=== PATIENT | male | born 1985 | race American Indian/Alaskan Native ===

== ENCOUNTER 2019-02-05 16:44 | Emergency (ER) | payer OTHER ==
[2019-02-05] MEDS ORDERED: TYLENOL PO ONE (17:02)
[2019-02-05 17:24] LABS: Basophils % (Auto) 0.1 % (0.0-1.8); Eosinophils # (Auto) 0.1 K/mm3 (0.0-0.4); Eosinophils % (Auto) 1.4 % (0.0-4.3); Hematocrit 40.6 % (35.5-45.6); Hemoglobin 13.4 gm/dl (11.8-15.2); Lymphocytes # (Auto) 0.5 K/mm3 (1.2-5.4); Lymphocytes % (Auto) 6.8 % (13.4-35.0); Mean Corpuscular HGB Conc 33 % (32-34); Mean Corpuscular Volume 78 fl (84-94); Monocytes # (Auto) 0.2 K/mm3 (0.0-0.8); Monocytes % (Auto) 3.1 % (0.0-7.3); Platelet Count 162 K/mm3 (140-440); Red Blood Count 5.18 M/mm3 (3.65-5.03); Red Cell Distribution Width 15.5 % (13.2-15.2)
[2019-02-05 17:54] LABS: Bilirubin,Urine NEG (Negative); Blood,Urine NEG (Negative); Color,Urine Yellow (Yellow); Protein,Urine <15 mg/dL mg/dL (Negative); WBC,Urine < 1.0 /HPF (0.0-6.0)
[2019-02-05 18:07] LABS: Alanine Aminotransferase 25 units/L (7-56); Albumin 4.6 g/dL (3.9-5); BUN/Creatinine Ratio 14; Blood Urea Nitrogen 17 mg/dL (9-20); Calcium 9.6 mg/dL (8.4-10.2); Hemolysis Index 3
--- NOTE | 2019-02-05 18:56 | Emergency Department Report ---
ED General Adult HPI - General Chief complaint: Nausea/Vomiting/Diarrhea Stated complaint: NAUSEA/DIZZY/LIGHT HEADED Time Seen by Provider: 02/05/19 18:27 Source: patient, RN notes reviewed Mode of arrival: Ambulatory Limitations: No Limitations - History of Present Illness Initial comments: This is a 33-year-old gentleman, not known to this provider previously. The patient presents to the emergency room today with a complaint of nausea, weakness and dizziness. He has not vomited. He does not have physical pain. He describes a sensation of lightheadedness. He reports earlier once today, he had mild suprapubic abdominal discomfort, which has since resolved. He currently denies headache, neck pain, chest pain, abdominal pain, shortness of breath, irritative or obstructive urinary symptoms, sore throat. He denies recent travel, antibiotic use, and he makes no indication of intravenous drug use. His symptoms have now resolved, and he has no complaints at this time. He denies body aches, muscle aches, myalgias. -: Sudden Severity scale (0 -10): 0 Consistency: now resolved Improves with: none Worsens with: none - Related Data Previous Rx's Medication Instructions Recorded Last Taken Type Acetaminophen [Arthritis Pain 650 mg PO Q6HR PRN #30 tablet.er 02/05/19 Unknown Rx Relief] Ibuprofen [Motrin] 600 mg PO Q8H PRN #30 tablet 02/05/19 Unknown Rx Magnesium Oxide 400 mg PO BID #14 tablet 02/05/19 Unknown Rx Ondansetron [Zofran Odt] 4 mg PO Q8HR PRN #20 tab.rapdis 02/05/19 Unknown Rx Allergies Allergy/AdvReac Type Severity Reaction Status Date / Time No Known Allergies Allergy Unverified 02/05/19 16:49 ED Review of Systems ROS: Stated complaint: NAUSEA/DIZZY/LIGHT HEADED Other details as noted in HPI Constitutional: malaise. denies: fever Eyes: denies: eye discharge ENT: denies: epistaxis Respiratory: denies: cough Cardiovascular: denies: chest pain, syncope Gastrointestinal: abdominal pain, nausea. denies: vomiting, diarrhea, constipation, hematemesis, melena, hematochezia Genitourinary: denies: urgency, dysuria, frequency, testicular pain Musculoskeletal: denies: back pain, arthralgia, myalgia Skin: denies: rash, lesions Psychiatric: denies: as per HPI, anxiety ED Past Medical Hx - Past Medical History Previous Medical History?: No - Surgical History Past Surgical History?: No - Social History Smoking Status: Never Smoker Substance Use Type: None - Medications Home Medications: Home Medications Medication Instructions Recorded Confirmed Last Taken Type Acetaminophen [Arthritis Pain 650 mg PO Q6HR PRN #30 tablet.er 02/05/19 Unknown Rx Relief] Ibuprofen [Motrin] 600 mg PO Q8H PRN #30 tablet 02/05/19 Unknown Rx Magnesium Oxide 400 mg PO BID #14 tablet 02/05/19 Unknown Rx Ondansetron [Zofran Odt] 4 mg PO Q8HR PRN #20 tab.rapdis 02/05/19 Unknown Rx ED Physical Exam - General Limitations: No Limitations General appearance: alert, in no apparent distress - Head Head exam: Present: atraumatic, normocephalic - Eye Eye exam: Present: normal appearance, PERRL, EOMI. Absent: nystagmus - ENT ENT exam: Present: normal exam, normal orophraynx, mucous membranes moist, TM's normal bilaterally, normal external ear exam, other (there is no mastoid tenderness. There is no sinus tenderness. There is no nasal septal hematoma.) - Neck Neck exam: Present: normal inspection, full ROM. Absent: tenderness, meni ngismus - Respiratory Respiratory exam: Present: normal lung sounds bilaterally. Absent: respiratory distress - Cardiovascular Cardiovascular Exam: Present: regular rate, normal rhythm, normal heart sounds. Absent: bradycardia, tachycardia, irregular rhythm, systolic murmur, diastolic murmur, rubs, gallop - GI/Abdominal GI/Abdominal exam: Present: soft. Absent: distended, tenderness, guarding, rebound, rigid, pulsatile mass - Rectal Rectal exam: Present: deferred - Extremities Exam Extremities exam: Present: normal inspection, full ROM, other (2+ pulses noted in the bilateral upper, lower extremities. Compartments soft. No long bony tenderness. The pelvis is stable.). Absent: pedal edema, joint swelling, calf tenderness - Back Exam Back exam: Present: normal inspection, full ROM. Absent: tenderness, CVA tenderness (R), paraspinal tenderness, vertebral tenderness - Neurological Exam Neurological exam: Present: alert, oriented X3, normal gait (there is normal [id number]. There is no pass pointing. There is negative pronator drift. There is normal gait. There is negative Romberg examination), other (Extraocular movements intact. Tongue midline. No facial droop. Facial sensation intact to light touch in the V1, V2, V3 distribution bilaterally. 5 and 5 strength in 4 extremities.. Sensation is intact to light touch in 4 extremities.). Absent: motor sensory deficit - Psychiatric Psychiatric exam: Present: normal affect, normal mood - Skin Skin exam: Present: warm, dry, intact, normal color. Absent: rash ED Course Vital Signs 02/05/19 02/05/19 16:57 19:33 Temperature 101.3 F H 98.8 F Pulse Rate 110 H 77 Respiratory 16 18 Rate Blood Pressure 148/91 143/85 [Left] O2 Sat by Pulse 98 98 Oximetry ED Medical Decision Making - Lab Data Result diagrams: 02/05/19 17:12 02/05/19 17:12 Vital Signs 02/05/19 02/05/19 16:57 19:33 Temperature 101.3 F H 98.8 F Pulse Rate 110 H 77 Respiratory 16 18 Rate Blood Pressure 148/91 143/85 [Left] O2 Sat by Pulse 98 98 Oximetry Lab Results 02/05/19 02/05/19 02/05/19 Range/Units 17:12 17:12 17:13 WBC 7.5 (4.5-11.0) K/mm3 RBC 5.18 H (3.65-5.03) M/mm3 Hgb 13.4 (11.8-15.2) gm/dl Hct 40.6 (35.5-45.6) % MCV 78 L (84-94) fl MCH 26 L (28-32) pg MCHC 33 (32-34) % RDW 15.5 H (13.2-15.2) % Plt Count 162 (140-440) K/mm3 Lymph % (Auto) 6.8 L (13.4-35.0) % Bland % (Auto) 3.1 (0.0-7.3) % Eos % (Auto) 1.4 (0.0-4.3) % Baso % (Auto) 0.1 (0.0-1.8) % Lymph # 0.5 L (1.2-5.4) K/mm3 Bland # 0.2 (0.0-0.8) K/mm3 Eos # 0.1 (0.0-0.4) K/mm3 Baso # 0.0 (0.0-0.1) K/mm3 Seg Neutrophils % 88.6 H (40.0-70.0) % Seg Neutrophils # 6.6 (1.8-7.7) K/mm3 Sodium 140 (137-145) mmol/L Potassium 4.0 (3.6-5.0) mmol/L Chloride 100.1 (98-107) mmol/L Carbon Dioxide 26 (22-30) mmol/L Anion Gap 18 mmol/L BUN 17 (9-20) mg/dL Creatinine 1.2 (0.8-1.5) mg/dL Estimated GFR > 60 ml/min BUN/Creatinine Ratio 14 % Glucose 102 H (75-100) mg/dL Calcium 9.6 (8.4-10.2) mg/dL Magnesium (1.7-2.3) mg/dL Total Bilirubin 1.20 (0.1-1.2) mg/dL AST 26 (5-40) units/L ALT 25 (7-56) units/L Alkaline Phosphatase 49 (35-129) units/L Total Creatine Kinase (55-170) units/L Total Protein 7.6 (6.3-8.2) g/dL Albumin 4.6 (3.9-5) g/dL Albumin/Globulin Ratio 1.5 % Urine Color Yellow (Yellow) Urine Turbidity Clear (Clear) Urine pH 6.0 (5.0-7.0) Ur Specific [place] 1.019 (1.003-1.030) Urine Protein <15 mg/dl (Negative) mg/dL Urine Glucose (UA) Neg (Negative) mg/dL Urine Ketones Neg (Negative) mg/dL Urine Blood Neg (Negative) Urine Nitrite Neg (Negative) Urine Bilirubin Neg (Negative) Urine Urobilinogen 4.0 (<2.0) mg/dL Ur Leukocyte Esterase Neg (Negative) Urine WBC (Auto) < 1.0 (0.0-6.0) /HPF Urine RBC (Auto) 4.0 (0.0-6.0) /HPF U Epithel Cells (Auto) < 1.0 (0-13.0) /HPF 02/05/19 Range/Units 19:06 WBC (4.5-11.0) K/mm3 RBC (3.65-5.03) M/mm3 Hgb (11.8-15.2) gm/dl Hct (35.5-45.6) % MCV (84-94) fl MCH (28-32) pg MCHC (32-34) % RDW (13.2-15.2) % Plt Count (140-440) K/mm3 Lymph % (Auto) (13.4-35.0) % Bland % (Auto) (0.0-7.3) % Eos % (Auto) (0.0-4.3) % Baso % (Auto) (0.0-1.8) % Lymph # (1.2-5.4) K/mm3 Bland # (0.0-0.8) K/mm3 Eos # (0.0-0.4) K/mm3 Baso # (0.0-0.1) K/mm3 Seg Neutrophils % (40.0-70.0) % Seg Neutrophils # (1.8-7.7) K/mm3 Sodium (137-145) mmol/L Potassium (3.6-5.0) mmol/L Chloride (98-107) mmol/L Carbon Dioxide (22-30) mmol/L Anion Gap mmol/L BUN (9-20) mg/dL Creatinine (0.8-1.5) mg/dL Estimated GFR ml/min BUN/Creatinine Ratio % Glucose (75-100) mg/dL Calcium (8.4-10.2) mg/dL Magnesium 1.60 L (1.7-2.3) mg/dL Total Bilirubin (0.1-1.2) mg/dL AST (5-40) units/L ALT (7-56) units/L Alkaline Phosphatase (35-129) units/L Total Creatine Kinase 516 H (55-170) units/L Total Protein (6.3-8.2) g/dL Albumin (3.9-5) g/dL Albumin/Globulin Ratio % Urine Color (Yellow) Urine Turbidity (Clear) Urine pH (5.0-7.0) Ur Specific [place] (1.003-1.030) Urine Protein (Negative) mg/dL Urine Glucose (UA) (Negative) mg/dL Urine Ketones (Negative) mg/dL Urine Blood (Negative) Urine Nitrite (Negative) Urine Bilirubin (Negative) Urine Urobilinogen (<2.0) mg/dL Ur Leukocyte Esterase (Negative) Urine WBC (Auto) (0.0-6.0) /HPF Urine RBC (Auto) (0.0-6.0) /HPF U Epithel Cells (Auto) (0-13.0) /HPF - EKG Data -: EKG Interpreted by Me EKG shows normal: sinus rhythm Rate: normal - EKG Data When compared to previous EKG there are: previous EKG unavailable 02/05/19 20:30 This is a normal sinus rhythm, 80 beats minute, normal axis, normal pulse, high left ventricular voltage, early repolarization, not having chest pain, his EKG is not consistent with ST elevation myocardial infarction. - Radiology Data Radiology results: report reviewed, image reviewed X-ray of the chest is negative for acute disease - Medical Decision Making Differential diagnosis, including not limited to: Dehydration, viral syndrome, pneumonia Assessment and plan: 33-year-old gentleman with no chronic medical conditions, presenting initially with fever and tachycardia and no pain. There is no abdominal tenderness, rebound or guarding. Laboratory studies essentially unremarkable, very mild hypomagnesemia reviewed and appreciated. Patient felt improved with acetaminophen, and minimal supportive symptomatic therapy. His magnesium was repleted. Extensive discussion had with the patient. I advised the patient that I thought it was very unlikely based off of the history and physical that he had a significant intra-abdominal process going on at this point in time. We did discuss a CT scan of the abdomen and pelvis, but I advised the patient that based on the current data available, I did not think it was necessary. Patient was engaged, and threw a decision-making, we have agreed to not obtain CT scan of the abdomen and pelvis. Patient will be discharged with pain medication, nausea medication, magnesium supplementation, and instructions to f ollow up with an outpatient physician in 2-3 days for repeat checkup/evaluation. The patient endorses that he is reliable to follow-up. Iclinically do not suspect influenza or influenza-like illness of the available history and physical. Critical care attestation.: If time is entered above; I have spent that time in minutes in the direct care of this critically ill patient, excluding procedure time. ED Disposition Clinical Impression: Acute febrile illness, Hypomagnesemia Disposition: DC-01 TO HOME OR SELFCARE Is pt being admited?: No Does the pt Need Aspirin: No Condition: Stable Additional Instructions: Take the medications as needed/directed. Advance diet as tolerated. Drink plenty of fluids. Patient may participate in light physical activity, but should not return to full duty until cleared by a primary care doctor. I recommend the patient follow up for repeat checkup/evaluation in the next 48- 72 hours. The patient may return to this emergency room, follow-up with his primary care doctor, follow-up at an urgent care center, or follow-up with the physician. Please return to the emergency room right away with new, worsening or different symptoms, projectile vomiting, change in mental status, confusion, inability to tolerate liquid feeds, new, worsening or different symptoms, symptoms not present on the initial ER evaluation. Referrals: [facility] [Provider Group] - 3-5 Days [facility] [Provider Group] - 3-5 Days
[2019-02-05] MEDS ORDERED: ZOFRAN ORAL LIQ PO ONE (19:07)
[2019-02-05] MEDS ORDERED: IBUPROFEN PO ONE (19:07)
[2019-02-05] MEDS ORDERED: MAG-OX PO STA (20:24)
--- NOTE | 2019-02-05 21:09 | XRay Report ---
PROCEDURE: XR CHEST ROUTINE 2V TECHNIQUE: 2 view chest HISTORY: feverweak COMPARISONS: FINDINGS: Cardiac and mediastinal contours are unremarkable. No focal pulmonary infiltrate identified. No pleur al fluid collection seen. Pulmonary vasculature is unremarkable. IMPRESSION: Negative two-view chest. This document is electronically signed by Michael Peterson MD., Feb 05 2019 09:06:46 PM ET
[2019-02-05 21:24] VITALS: BP 128/86
== END 2019-02-05 21:26 | disposition home or self-care (01) ==
LOC: ED 16:44
DX: E83.42 Hypomagnesemia (principal); R50.9 Fever, unspecified
CPT/HCPCS: 36415; 71046; 80053; 81001; 82550; 83735; 85025; 93005; 93010; 99284; Q0162